=== PATIENT | female | born 1935 | race Caucasian/White ===

== ENCOUNTER → 2017-04-05 | Outpatient (CLI) | payer OTHER ==
[~2017-04-05] VITALS: Ht 160 cm; Wt 60.3 kg
[~2017-04-05] MED LIST: ASCORBIC ACID500 M3 PO; ASPIRIN E.C.81 M1 PO; Ascorbic Acid,Ester- PO; CITRACAL W/V1 TABLE1 PO; CLONAZEPAM0.5 MG PO; COLCHICINE0.6 M1 PO; COUMADIN2.5 MG PO; Coumadin dosing per PO; DESYREL100 MG PO; DIOVAN320 MG PO; Desyrel PO; ENDOCET 5-3251 EACH PO; FIBERCON625 MG PO; FISH OIL 1,0001 EAC7 PO; Garlic PO; Glucophage PO; KLONOPIN0.5 M1 PO; LANOXIN,DIGI0.125 MG PO; LANOXIN125 MCG PO; LOPRESSOR50 MG PO; LOVASTATIN20 MG PO; LOVENOX60 MG/0.6 SC; Lopressor PO; METFORMIN HCL500 MG PO; MICRO-K8 ME2 PO; Mevacor PO; NASACORT AQ NS; NASACORT10.8 ML BOTH NARES; NEXIUM20 MG PO; NEXIUM40 MG PO; NORVASC2.5 MG PO; Omega III EPA + DHA PO; Osteo-Biflex,Flex-A- PO; PROVENTIL HFA6.7 GM IH; Proventil,Ventolin H IH; SPIRIVA1 INHALATI IH; Singulair PO; THERAGRAN1 TABLET PO; TRIAMTERENE-HC1 EACH PO; TYLENOL WITH C1 EACH PO; VENLAFAXINE H37.5 M3 PO; VITAMIN E400 UNIT PO; Vitamin-E PO
[2017-04-05 10:07] LABS: HEMATOCRIT 41.3 % (36.0-46.0); MCH 31.5 PG (29.0-34.0); MCHC 33.2 G/DL (30.0-36.0); MCV 94.9 FL (83-99); MEAN PLAT.VOLUME 10.7 uM^3 (9.5-12.4); PLATELET COUNT 289 K/uL (156-360); RBC DIS.WIDTH-CV 14.6 % (11.8-14.6); RBC DIS.WIDTH-SD 51.6 % (39-53); RED BLOOD COUNT 4.35 M/uL (3.80-5.20)
[2017-04-05 10:25] LABS: POINT-OF-CARE METER ID UU14107333
[2017-04-05 10:44] LABS: INTER. NORMALIZED RATIO 1.2; PROTHROMBIN TIME 13.4 SEC (10.2-12.9)
[2017-04-05 11:07] LABS: POINT-OF-CARE METER ID UU14107333
== END | disposition home or self-care (01) ==
LOC: AMB 09:03
PROVIDERS: Internal Medicine Gastroenterology
DX: K86.2 Cyst of pancreas (principal); K83.8 Other specified diseases of biliary tract; K86.89 Other specified diseases of pancreas; N28.1 Cyst of kidney, acquired; K76.89 Other specified diseases of liver; I48.91 Unspecified atrial fibrillation; Z79.01 Long term (current) use of anticoagulants; R63.4 Abnormal weight loss; M19.90 Unspecified osteoarthritis, unspecified site; E11.9 Type 2 diabetes mellitus without complications; E78.00 Pure hypercholesterolemia, unspecified; E21.3 Hyperparathyroidism, unspecified; I10 Essential (primary) hypertension; M81.0 Age-related osteoporosis without current pathological fracture; E55.9 Vitamin D deficiency, unspecified; J44.9 Chronic obstructive pulmonary disease, unspecified; Z85.118 Personal history of other malignant neoplasm of bronchus and lung; Z87.11 Personal history of peptic ulcer disease; Z87.891 Personal history of nicotine dependence; Z79.84 Long term (current) use of oral hypoglycemic drugs
CPT/HCPCS: 82948; 85027; 85610; 88173; C1726; J0330; J0744; J3010

== ENCOUNTER 2017-05-01 08:48 | Observation (INO) | payer OTHER ==
[~2017-05-01] VITALS: Ht 157.5 cm; Wt 62.4 kg
[2017-05-01 09:44] LABS: BASOPHIL COUNT 0.1 K/uL (0-0.1); EOSINOPHIL COUNT 0.2 K/uL (0-0.3); HEMATOCRIT 46.1 % (36.0-46.0); IMMATURE GRANULOCYTE (%) 0.8 % (0.0-0.7); IMMATURE GRANULOCYTE COUNT 0.1 K/uL; INSTRUMENT ABS NEUTROPHIL CT 13.3 K/uL; LYMPHOCYTE COUNT 0.8 K/uL (1.0-2.8); MCH 30.8 PG (29.0-34.0); MCHC 32.5 G/DL (30.0-36.0); MCV 94.7 FL (83-99); MEAN PLAT.VOLUME 11.6 uM^3 (9.5-12.4); MONOCYTE (%) 7.6 % (3-12); MONOCYTE COUNT 1.2 K/uL (0-0.8); NEUTROPHIL (%) 84.7 % (45-76); NEUTROPHIL COUNT 13.3 K/uL (1.8-6.4); PLATELET COUNT 308 K/uL (156-360); RBC DIS.WIDTH-CV 14.6 % (11.8-14.6); RBC DIS.WIDTH-SD 50.8 % (39-53); RED BLOOD COUNT 4.87 M/uL (3.80-5.20); WHITE BLOOD COUNT 15.7 K/uL (4.1-10.2)
[2017-05-01 09:54] LABS: AMYLASE 22 IU/L (1-118); CHLORIDE 104 mEq/L (99-109); POTASSIUM 4.6 mEq/L (3.7-5.4); SODIUM 141 mEq/L (136-147)
[2017-05-01 09:55] LABS: GLUCOSE 116 mg/dL (70-99)
[2017-05-01 09:57] LABS: ANION GAP 14 MEQ/L (2-14)
[2017-05-01 09:58] LABS: INTER. NORMALIZED RATIO 5.5; PROTHROMBIN TIME 64.6 SEC (10.2-12.9)
[2017-05-01 09:59] LABS: GFR ESTIMATE (CALCULATED) > 59 mL/min/; SERUM ETHYL ALCOHOL < 10 mg/dL
[2017-05-01 10:00] LABS: UREA NITROGEN (BUN) 10 mg/dL (9-23)
[2017-05-01 10:02] LABS: LIPASE 6 U/L (1.0-51.0)
[2017-05-01] MEDS ORDERED: STIOLTO RESPIMAT4 GM IH (14:42)
[2017-05-01] MEDS ORDERED: VITAMIN D31000 UNI2 PO (14:48)
[2017-05-01] MEDS ORDERED: ZOFRAN4 MG PO (14:48)
[2017-05-01] MEDS ORDERED: COUMADIN2.5 MG PO (14:50)
[2017-05-01] MEDS ORDERED: WARFARIN SODIU2.5 MG PO (14:50)
[2017-05-01 16:16] VITALS: BP 136/66
[2017-05-01 19:15] VITALS: BP 110/59
[2017-05-01 21:07] LABS: ADD MIUA? YES; BILIRUBIN NEGATIVE; BLOOD SMALL; COLOR YELLOW ((YELLOW)); GLUCOSE (STRIP) NEGATIVE; KETONES 5; LEUKOCYTES NEGATIVE; NITRITE NEGATIVE; PROTEIN (STRIP) NEGATIVE; UROBILINOGEN 0.2 MG/DL (0.2-1.0)
[2017-05-01 21:14] LABS: BACTERIA NONE SEEN /HPF; EPITHELIAL CELLS RARE /HPF; MUCUS TRACE /LPF; RED BLOOD CELLS 0-5 /HPF (0-5); UCUL ADDED? NO; WHITE BLOOD CELLS 0-5 /HPF (0-5)
[2017-05-01 21:22] LABS: AMPHETAMINE NEGATIVE (500 ng/mL); BARBITURATES NEGATIVE (200 ng/mL); BENZODIAZEPINES NEGATIVE (150 ng/mL); COCAINE NEGATIVE (150 ng/mL); INTERNAL CONTROLS VALID? YES; METHADONE NEGATIVE (200 ng/mL); METHAMPHETAMINE NEGATIVE (500 ng/mL); OPIATES (MORPHINE) PRESUMPTIVE POSITIVE (100 ng/mL); OXYCODONE PRESUMPTIVE POSITIVE (100 ng/mL); PHENCYCLIDINE NEGATIVE (25 ng/mL); PROPOXYPHENE NEGATIVE (300 ng/mL); THC CANNABINOIDS NEGATIVE (50 ng/mL); TRICYCLIC ANTIDEPRESSANTS NEGATIVE (300 ng/mL)
[2017-05-01 21:23] LABS: ADD MEDTOX COMMENT Y
[2017-05-01 23:18] VITALS: BP 127/55
[2017-05-02 03:22] VITALS: BP 116/59
[2017-05-02 07:02] LABS: MCH 31.9 PG (29.0-34.0); MCHC 33.7 G/DL (30.0-36.0); MCV 94.8 FL (83-99); RBC DIS.WIDTH-CV 14.5 % (11.8-14.6); RBC DIS.WIDTH-SD 50.4 % (39-53); RED BLOOD COUNT 4.01 M/uL (3.80-5.20); WHITE BLOOD COUNT 8.7 K/uL (4.1-10.2)
[2017-05-02 07:13] LABS: MEAN PLAT.VOLUME 10.8 uM^3 (9.5-12.4); PLAT.SUFFICIENCY ADEQUATE; PLATELET COUNT 229 K/uL (156-360)
[2017-05-02 07:14] LABS: ALKALINE PHOSPHATASE 68 IU/L (3-129); ANION GAP 5 MEQ/L (2-14); CHLORIDE 107 MEQ/L (99-109); GFR ESTIMATE (CALCULATED) > 59 mL/min/; SAMPLE HEMOLYSIS CHECK 0; SAMPLE ICTERIC CHECK 0; SAMPLE LIPEMIA CHECK 0; SODIUM 140 MEQ/L (136-147); TOTAL BILIRUBIN 0.7 MG/DL (0.0-1.0); UREA NITROGEN (BUN) 9 mg/dL (9-23)
[2017-05-02 07:17] LABS: GLUCOSE 85 mg/dL (70-99)
[2017-05-02 07:20] VITALS: BP 134/68
[2017-05-02 11:52] VITALS: BP 131/60
[2017-05-02 11:56] VITALS: BP 122/85
== END 2017-05-02 15:58 | disposition home or self-care (01) ==
LOC: TRA 08:48 → EDOF 13:19 → 3EAST 13:19 → EDOF 13:19 → ENRESERV 13:23 → CANRESERV 13:23 → ENRESERV 13:43 → 3EAST 15:48
PROVIDERS: Emergency Medicine; Surgery
DX: S06.2X0A Diffuse traumatic brain injury without loss of consciousness, initial encounter (principal); S51.811A Laceration without foreign body of right forearm, initial encounter; S91.011A Laceration without foreign body, right ankle, initial encounter; S40.211A Abrasion of right shoulder, initial encounter; S50.811A Abrasion of right forearm, initial encounter; S50.812A Abrasion of left forearm, initial encounter; S90.511A Abrasion, right ankle, initial encounter; M54.2 Cervicalgia; W10.8XXA Fall (on) (from) other stairs and steps, initial encounter; Z91.81 History of falling; Y93.9 Activity, unspecified; Y92.019 Unspecified place in single-family (private) house as the place of occurrence of the external cause; R79.1 Abnormal coagulation profile; Z91.19 Patient's noncompliance with other medical treatment and regimen; R26.89 Other abnormalities of gait and mobility; I48.0 Paroxysmal atrial fibrillation; I71.2 Thoracic aortic aneurysm, without rupture; I25.10 Atherosclerotic heart disease of native coronary artery without angina pectoris; Z86.73 Personal history of transient ischemic attack (TIA), and cerebral infarction without residual deficits; J44.9 Chronic obstructive pulmonary disease, unspecified; E11.9 Type 2 diabetes mellitus without complications; I11.9 Hypertensive heart disease without heart failure; E78.5 Hyperlipidemia, unspecified; E66.9 Obesity, unspecified; Z72.0 Tobacco use; Z79.84 Long term (current) use of oral hypoglycemic drugs; Z79.01 Long term (current) use of anticoagulants; G89.29 Other chronic pain; M48.54XS Collapsed vertebra, not elsewhere classified, thoracic region, sequela of fracture; Z85.118 Personal history of other malignant neoplasm of bronchus and lung; F41.9 Anxiety disorder, unspecified; K21.9 Gastro-esophageal reflux disease without esophagitis
CPT/HCPCS: 70450; 71260; 72125; 72129; 72132; 73030; 73090; 73600; 74177; 80048; 80053; 81003; 82150; 83690; 84439; 84443; 84999; 85025; 85027; 85610; 85730; 86850; 86900; 86901; 93005; 94640; 94640 76; 99202; 99281; 99285; G0378; G0480; J7120

== ENCOUNTER → 2017-05-08 | Outpatient (CLI) | payer OTHER ==
[~2017-05-08] MED LIST changes: +STIOLTO RESPIMAT4 GM IH; +VITAMIN D31000 UNI2 PO; +WARFARIN SODIU2.5 MG PO; +ZOFRAN4 MG PO
== END | disposition home or self-care (01) ==
LOC: NUC 06:51
DX: R63.4 Abnormal weight loss (principal); R10.13 Epigastric pain
CPT/HCPCS: 78226; A9537

== ENCOUNTER → 2017-08-07 | Outpatient (CLI) | payer OTHER ==
[~2017-08-07] MED LIST changes: +ADVAIR 250/501 DISK IH; +ASPIR 8181 M1 PO; +TYLENOL EXTRA500 MG PO
== END | disposition home or self-care (01) ==
LOC: OPR 08:28 → EDSTATUS 09:00 → OPR 09:00
PROC: 0BJKXZZ Inspection of Right Lung, External Approach (ICD-10-PCS; principal; 2017-08-07)
DX: R91.8 Other nonspecific abnormal finding of lung field (principal); Z85.118 Personal history of other malignant neoplasm of bronchus and lung; Z53.09 Procedure and treatment not carried out because of other contraindication
CPT/HCPCS: 71250; J3010

== ENCOUNTER 2017-09-13 06:49 | Day surgery (SDC) | payer OTHER ==
[~2017-09-13] VITALS: Ht 162.6 cm; Wt 55.3 kg
[2017-09-13 07:47] VITALS: BP 138/63
[2017-09-13 08:11] LABS: HEMATOCRIT 38.9 % (36.0-46.0); HEMOGLOBIN 12.1 G/DL (11.9-15.5); MCH 28.2 PG (29.0-34.0); MCHC 31.1 G/DL (30.0-36.0); MCV 90.7 FL (83-99); PLATELET COUNT 432 K/uL (156-360); RBC DIS.WIDTH-CV 15.9 % (11.8-14.6); RBC DIS.WIDTH-SD 52.2 % (39-53); RED BLOOD COUNT 4.29 M/uL (3.80-5.20)
[2017-09-13] MEDS ORDERED: HYDROCODON-ACE1 EAC7 PO (12:34)
[2017-09-13 13:25] VITALS: BP 114/61
[2017-09-13 14:09] VITALS: BP 147/76
== END 2017-09-13 14:21 | disposition home or self-care (01) ==
LOC: SDC
PROVIDERS: Surgery
PROC: 0HBU0ZZ Excision of Left Breast, Open Approach (ICD-10-PCS; principal; 2017-09-13)
DX: D05.02 Lobular carcinoma in situ of left breast (principal); I48.91 Unspecified atrial fibrillation; E11.9 Type 2 diabetes mellitus without complications; E78.00 Pure hypercholesterolemia, unspecified; E21.3 Hyperparathyroidism, unspecified; I10 Essential (primary) hypertension; J44.9 Chronic obstructive pulmonary disease, unspecified; I44.4 Left anterior fascicular block; Z85.118 Personal history of other malignant neoplasm of bronchus and lung; Z86.73 Personal history of transient ischemic attack (TIA), and cerebral infarction without residual deficits; Z79.82 Long term (current) use of aspirin; Z80.1 Family history of malignant neoplasm of trachea, bronchus and lung; Z80.6 Family history of leukemia; Z80.0 Family history of malignant neoplasm of digestive organs; F17.200 Nicotine dependence, unspecified, uncomplicated
CPT/HCPCS: 82948; 85027; 88305; 88307; 88341 TC; 88342 TC; J0690; J2405; J3010; S0020

== ENCOUNTER 2017-09-27 05:56 | Day surgery (SDC) | payer OTHER ==
[~2017-09-27] VITALS: Ht 162.6 cm; Wt 55.3 kg
[~2017-09-27 05:56] MED LIST changes: +HYDROCODON-ACE1 EAC7 PO
[2017-09-27 06:46] VITALS: BP 116/60
[2017-09-27] MEDS ORDERED: HYDROCODON-ACE1 EAC7 PO (09:15)
[2017-09-27 09:44] VITALS: BP 128/69
[2017-09-27 10:28] VITALS: BP 140/60
== END 2017-09-27 10:34 | disposition home or self-care (01) ==
LOC: SDC 05:56
PROC: 0HBU0ZZ Excision of Left Breast, Open Approach (ICD-10-PCS; principal; 2017-09-27)
DX: D05.02 Lobular carcinoma in situ of left breast (principal); I10 Essential (primary) hypertension; I48.91 Unspecified atrial fibrillation; J44.9 Chronic obstructive pulmonary disease, unspecified; E11.9 Type 2 diabetes mellitus without complications; E78.5 Hyperlipidemia, unspecified; F17.210 Nicotine dependence, cigarettes, uncomplicated; Z86.73 Personal history of transient ischemic attack (TIA), and cerebral infarction without residual deficits; Z79.82 Long term (current) use of aspirin; Z85.118 Personal history of other malignant neoplasm of bronchus and lung
CPT/HCPCS: 88307; J0690; J1170; J2300; J2405; Q0175; S0020

== ENCOUNTER 2017-11-01 10:16 | Observation (INO) | payer OTHER ==
[~2017-11-01] VITALS: Ht 165.1 cm; Wt 50.8 kg
[2017-11-08] MEDS ORDERED: MIRTAZAPINE15 MG PO (06:03)
[2017-11-08 06:04] VITALS: BP 140/69
[2017-11-08 12:02] VITALS: BP 108/53
[2017-11-08 16:07] VITALS: BP 107/52
[2017-11-08 19:05] VITALS: BP 112/53
[2017-11-08 23:30] VITALS: BP 113/62
[2017-11-09 03:25] VITALS: BP 131/63
[2017-11-09 06:30] LABS: HEMATOCRIT 38.5 % (36.0-46.0); MCH 29.5 PG (29.0-34.0); MCHC 31.2 G/DL (30.0-36.0); MCV 94.6 FL (83-99); PLATELET COUNT 409 K/uL (156-360); RBC DIS.WIDTH-CV 17.2 % (11.8-14.6); RBC DIS.WIDTH-SD 59.7 % (39-53); RED BLOOD COUNT 4.07 M/uL (3.80-5.20); WHITE BLOOD COUNT 14.8 K/uL (4.1-10.2)
[2017-11-09 08:08] VITALS: BP 130/70
[2017-11-09 11:22] VITALS: BP 142/61
[2017-11-09] MEDS ORDERED: ENDOCET 5-3251 EACH PO (12:46)
== END 2017-11-09 14:13 | disposition home or self-care (01) ==
LOC: SDC 10:16 → EDSTATUS 11:16 → SDC 11:16 → ENRESERV 11-07 21:44 → 2SOUTH 11-08 05:25 → ENRESERV 11-08 10:48 → 2SOUTH 11-08 11:16 → 2EAST 11-08 11:59
PROVIDERS: Surgery
DX: D05.82 Other specified type of carcinoma in situ of left breast (principal); Z85.118 Personal history of other malignant neoplasm of bronchus and lung; E78.5 Hyperlipidemia, unspecified; I10 Essential (primary) hypertension; E11.9 Type 2 diabetes mellitus without complications; J44.9 Chronic obstructive pulmonary disease, unspecified; M19.90 Unspecified osteoarthritis, unspecified site; F17.200 Nicotine dependence, unspecified, uncomplicated; Z86.73 Personal history of transient ischemic attack (TIA), and cerebral infarction without residual deficits; K21.9 Gastro-esophageal reflux disease without esophagitis; Z87.11 Personal history of peptic ulcer disease; Z79.82 Long term (current) use of aspirin; Z80.0 Family history of malignant neoplasm of digestive organs; Z82.49 Family history of ischemic heart disease and other diseases of the circulatory system; Z80.6 Family history of leukemia; Z80.1 Family history of malignant neoplasm of trachea, bronchus and lung
CPT/HCPCS: 78195; 85027; 88305; 88307; 88331; 94640; 94799; 99202; A9541; G0378; J0131; J0690; J1100; J3010; J3480; S0020

== ENCOUNTER 2018-01-11 09:22 | Emergency (ER) | payer OTHER ==
[~2018-01-11] VITALS: Ht 165.1 cm; Wt 57.0 kg
[~2018-01-11 09:22] MED LIST changes: +MIRTAZAPINE15 MG PO
[2018-01-11 10:36] LABS: HEMATOCRIT 35.7 % (36.0-46.0); HEMOGLOBIN 11.6 G/DL (11.9-15.5); MCH 29.2 PG (29.0-34.0); MCHC 32.5 G/DL (30.0-36.0); MCV 89.9 FL (83-99); PLATELET COUNT 429 K/uL (156-360); RBC DIS.WIDTH-CV 15.5 % (11.8-14.6); RED BLOOD COUNT 3.97 M/uL (3.80-5.20)
[2018-01-11 10:47] LABS: CHLORIDE 102 mEq/L (99-109); POTASSIUM 4.4 mEq/L (3.7-5.4); SODIUM 136 mEq/L (136-147)
[2018-01-11 10:48] LABS: GLUCOSE 139 mg/dL (70-99)
[2018-01-11 10:52] LABS: CREATININE 0.9 mg/dL (0.6-1.3); GFR ESTIMATE (CALCULATED) > 59 mL/min/
[2018-01-11 10:53] LABS: UREA NITROGEN (BUN) 30 mg/dL (9-23)
[2018-01-11 11:53] LABS: APPEARANCE CLEAR ((CLEAR)); BILIRUBIN NEGATIVE; BLOOD NEGATIVE; COLOR YELLOW ((YELLOW)); GLUCOSE (STRIP) NEGATIVE; KETONES NEGATIVE; LEUKOCYTES NEGATIVE; NITRITE NEGATIVE; PROTEIN (STRIP) NEGATIVE; SPECIFIC GRAVITY 1.019 (1.000-1.030); UCUL ADDED? NO; UROBILINOGEN 0.2 MG/DL (0.2-1.0)
[2018-01-11 12:09] LABS: CREATINE KINASE 88 IU/L (1-294)
[2018-01-11] MEDS ORDERED: ULTRAM50 MG PO (12:23)
[2018-01-11] MEDS ORDERED: CELEBREX100 MG PO (12:26)
[2018-01-11 14:50] VITALS: BP 100/57
== END 2018-01-11 14:50 | disposition home or self-care (01) ==
LOC: EME 09:22
PROVIDERS: Emergency Medicine
DX: R53.1 Weakness (principal); M70.21 Olecranon bursitis, right elbow; E86.0 Dehydration; I48.91 Unspecified atrial fibrillation; I10 Essential (primary) hypertension; Z85.3 Personal history of malignant neoplasm of breast; Z85.118 Personal history of other malignant neoplasm of bronchus and lung
CPT/HCPCS: 71045; 80048; 81003; 82550; 83605; 85027; 93005; J7030